=== PATIENT | female | born 1960 | race Caucasian/White ===

== ENCOUNTER → 2019-08-19 08:44 | Outpatient (BNVA) | payer OTHER, SELFPAY | PROVIDERS: Family Provider Family Medicine; PCP Family Medicine; Visit Provider Dermatology | DX: L57.0 Actinic keratosis (principal); L82.1 Other seborrheic keratosis; D18.01 Hemangioma of skin and subcutaneous tissue; D23.9 Other benign neoplasm of skin, unspecified; H02.829 Cysts of unspecified eye, unspecified eyelid | CPT/HCPCS: 17000; 17003; 99203 ==

== ENCOUNTER 2020-02-14 08:03 | Outpatient (CLI) | payer OTHER, SELFPAY ==
--- NOTE | 2020-02-14 08:09 | MM_ITS ---
WS: [id number] BILATERAL DIGITAL SCREENING MAMMOGRAPHY WITH CAD CLINICAL INFORMATION: SCREENING HISTORY: Screening mammogram. No current complaints. COMPARISON: TECHNIQUE: Bilateral CC and MLO views. FINDINGS: Scattered fibroglandular densities bilaterally. No suspicious focal mass, asymmetry, calcifications, or architectural distortion. No evidence of malignancy. MM/[id number] IMPRESSION: BI-RADS: 1-Negative FOLLOW UP: 1 Year Follow-up Recommend return to annual screening mammography.
== END 2020-02-14 08:04 | disposition home or self-care (01) ==
LOC: RADSHAW 08:07
PROVIDERS: PCP Nurse Practitioner Family; Visit Provider Nurse Practitioner Family
DX: Z12.31 Encounter for screening mammogram for malignant neoplasm of breast (principal)
CPT/HCPCS: 77067